=== PATIENT | female | born 1955 | race Native Hawaiian/Other Pacific Islander ===

== ENCOUNTER 2020-05-28 13:52 | Emergency (ER) | payer OTHER, BC ==
[~2020-05-28] VITALS: Ht 157.5 cm; Wt 72.6 kg
[2020-05-28 13:58] VITALS: BP 159/87; TEMP 98
[2020-05-28 14:23] LABS: PLATELET COUNT 255 K/uL (152-353)
[2020-05-28 14:32] LABS: POTASSIUM 3.6 mmol/L (3.6-5.2)
[2020-05-28] MEDS ORDERED: MEMA10TA2 PO (15:40)
[2020-05-28] MEDS ORDERED: CELEBREX200 MG PO (15:40)
[2020-05-28] MEDS ORDERED: TRIA0.1C5 TOP ×2 (15:41→16:06)
[2020-05-28] MEDS ORDERED: DONE5TAB PO (15:42)
[2020-05-28] MEDS ORDERED: QUET50TA16 PO (15:44)
== END 2020-05-28 14:42 | disposition still patient (30) ==
LOC: ED 13:52
PROVIDERS: Hospitalist
DX: F25.8 Other schizoaffective disorders (principal); F03.91 Unspecified dementia, unspecified severity, with behavioral disturbance; Z11.52 Encounter for screening for COVID-19; Z04.6 Encounter for general psychiatric examination, requested by authority
CPT/HCPCS: 80053; 85027; 87635; 93005; 99283; 99285; J1200; J3486; U0003